=== PATIENT | female | born 1960 | race Caucasian/White ===

== ENCOUNTER 2016-12-01 09:30 | Inpatient (IN) | payer OTHER ==
[~2016-12-01] VITALS: Ht 152.4 cm; Wt 41.4 kg
[2016-12-01 12:10] LABS: BASOPHIL % 0.3 % (0-2); PLATELET COUNT 351 x10^3mcL (130-400)
[2016-12-01 12:15] LABS: microscopic required? NO
[2016-12-01 12:31] LABS: urine erythrocyte NEGATIVE (NEGATIVE)
[2016-12-01 12:38] LABS: RED CELL DISTRIBUTION WIDTH 15.8 % (11.5-14.5)
[2016-12-01 13:04] LABS: CARBON DIOXIDE 28.3 mmol/L (21-32); POTASSIUM SERUM 3.9 mmol/L (3.5-5.1)
[2016-12-01 13:05] LABS: CALCIUM 8.8 mg/dL (8.5-10.1); CREATININE SERUM 1.1 mg/dL (0.6-1.0)
[2016-12-01] MEDS ORDERED: DEPAKOTE500 MG PO (13:09)
[2016-12-01 13:10] LABS: TOTAL PROTEIN, SERUM 6.9 g/dL (6.4-8.2)
[2016-12-01] MEDS ORDERED: TRAZODONE100 MG PO (13:10)
[2016-12-01 13:11] LABS: ALBUMIN 2.7 g/dL (3.4-5.0); BILIRUBIN TOTAL 0.24 mg/dL (0.20-1.00); MAGNESIUM 2.5 mg/dL (1.8-2.4)
[2016-12-01 14:46] LABS: PHOSPHOROUS 4.5 mg/dL (2.5-4.9)
[2016-12-01 14:48] LABS: T3 TOTAL 1.37 ng/mL
[2016-12-01 14:51] VITALS: BP 105/71
[2016-12-01 14:52] LABS: CHOLESTEROL/HDL RATIO 2.3
[2016-12-01 15:00] LABS: FREE T4 1.12 ng/dL (0.76-1.46); FREE THYROXINE INDEX 2.5 ug/dL (1.4-4.5); T4(THYROXINE) 7.5 ug/dL (4.7-13.3)
[2016-12-01] MEDS ORDERED: PHARMASSURE FO0.4 MG PO (15:26)
[2016-12-01] MEDS ORDERED: FERROUS SULFAT325 M2 PO (15:26)
[2016-12-01 16:52] VITALS: BP 97/54
[2016-12-01 18:45] LABS: AMPHETAMINE QUAL UR NONE DETECTED (NEG <=1000)
[2016-12-01 21:35] VITALS: BP 94/57
[2016-12-02 05:54] LABS: BASOPHIL % 0.5 % (0-2); PLATELET COUNT 373 x10^3mcL (130-400)
[2016-12-02 05:55] VITALS: BP 94/53
[2016-12-02 06:25] LABS: CARBON DIOXIDE 27.2 mmol/L (21-32); CREATININE SERUM 1.1 mg/dL (0.6-1.0); POTASSIUM SERUM 4.4 mmol/L (3.5-5.1)
[2016-12-02 06:43] LABS: RED CELL DISTRIBUTION WIDTH 15.5 % (11.5-14.5)
[2016-12-02 09:34] VITALS: BP 90/52
[2016-12-02 14:56] LABS: TOTAL IRON BINDING CAPACITY 248 ug/dL (250-450)
[2016-12-02 14:57] LABS: IRON 16 ug/dL (50-170)
[2016-12-02 15:50] LABS: RED BLOOD CELLS 3.75 M/mm3 (4.10-5.10)
[2016-12-02 17:24] VITALS: BP 83/47
[2016-12-02 17:49] VITALS: BP 84/53
[2016-12-02 20:30] VITALS: BP 91/52
[2016-12-02 23:42] VITALS: BP 91/52
[2016-12-03 05:47] VITALS: BP 90/56
[2016-12-03 07:15] LABS: BASOPHIL % 0.5 % (0-2); PLATELET COUNT 306 x10^3mcL (130-400)
[2016-12-03 07:17] LABS: RED CELL DISTRIBUTION WIDTH 15.8 % (11.5-14.5)
[2016-12-03 07:43] LABS: CARBON DIOXIDE 22.9 mmol/L (21-32); CHLORIDE SERUM 107 mmol/L (98-107); CREATININE SERUM 0.9 mg/dL (0.6-1.0); GFR1 > 60 mL/min; POTASSIUM SERUM 3.8 mmol/L (3.5-5.1); SODIUM SERUM 139 mmol/L (136-145)
[2016-12-03 07:49] LABS: GLUCOSE SERUM 50 mg/dL (74-106)
[2016-12-03 08:22] VITALS: BP 104/54
[2016-12-03 11:53] VITALS: Ht 152.4 cm; Wt 41.4 kg
[2016-12-03 13:16] VITALS: BP 102/67
[2016-12-03 17:50] VITALS: BP 107/65
[2016-12-03 20:31] VITALS: BP 103/61
[2016-12-04 06:51] LABS: CHLORIDE SERUM 109 mmol/L (98-107); CREATININE SERUM 0.8 mg/dL (0.6-1.0); GFR1 > 60 mL/min; GLUCOSE SERUM 82 mg/dL (74-106); POTASSIUM SERUM 3.4 mmol/L (3.5-5.1); SODIUM SERUM 140 mmol/L (136-145)
[2016-12-04 07:12] LABS: BASOPHIL % 0.8 % (0-2); PLATELET COUNT 293 x10^3mcL (130-400)
[2016-12-04 07:14] LABS: RED CELL DISTRIBUTION WIDTH 15.6 % (11.5-14.5)
[2016-12-04 07:30] VITALS: BP 94/63
[2016-12-04 09:18] VITALS: BP 95/57
[2016-12-04] MEDS ORDERED: FER300 PO (10:10)
[2016-12-04] MEDS ORDERED: VITC PO (10:11)
[2016-12-04] MEDS ORDERED: ECO81 PO (10:11)
[2016-12-04] MEDS ORDERED: DEPAKOTE500 MG PO (10:14)
[2016-12-04] MEDS ORDERED: PRA20 PO (10:16)
[2016-12-04 11:32] VITALS: BP 100/67
== END 2016-12-04 12:20 | disposition home or self-care (01) | DRG 247 ==
LOC: ED 09:30 → DU 13:10 → MU 12-03 18:37
PROVIDERS: Emergency Medicine; Family Medicine; ADMIT Family Medicine
DX: K56.7 Ileus, unspecified (principal); N17.0 Acute kidney failure with tubular necrosis; E43 Unspecified severe protein-calorie malnutrition; I73.9 Peripheral vascular disease, unspecified; G47.00 Insomnia, unspecified; G40.909 Epilepsy, unspecified, not intractable, without status epilepticus; D64.9 Anemia, unspecified; F31.9 Bipolar disorder, unspecified; F17.210 Nicotine dependence, cigarettes, uncomplicated; I25.2 Old myocardial infarction; Z68.1 Body mass index [BMI] 19.9 or less, adult; Z86.74 Personal history of sudden cardiac arrest; Z98.0 Intestinal bypass and anastomosis status; Z90.710 Acquired absence of both cervix and uterus
CPT/HCPCS: 80307; 83880; 84439; J1885; J2270; J2405; J3490; J7030; J7040; Q0092

== ENCOUNTER 2017-04-28 16:32 | Emergency (ER) | payer MEDICAID ==
[~2017-04-28 16:32] MED LIST: DEPAKOTE500 MG PO; ECO81 PO; FER300 PO; FERROUS SULFAT325 M2 PO; PHARMASSURE FO0.4 MG PO; PRA20 PO; TRAZODONE100 MG PO; VITC PO
[2017-04-28 18:44] VITALS: BP 143/86
== END 2017-04-28 18:44 | disposition home or self-care (01) ==
LOC: ED 16:32
DX: S70.12XA Contusion of left thigh, initial encounter (principal); F17.210 Nicotine dependence, cigarettes, uncomplicated; Z88.8 Allergy status to other drugs, medicaments and biological substances; Z99.2 Dependence on renal dialysis; W18.30XA Fall on same level, unspecified, initial encounter; Y93.89 Activity, other specified; Y99.8 Other external cause status; Y92.89 Other specified places as the place of occurrence of the external cause
CPT/HCPCS: Q0092

== ENCOUNTER 2017-07-31 13:20 | Emergency (ER) | payer MEDICAID ==
[~2017-07-31] VITALS: Ht 152.4 cm; Wt 49.4 kg
[2017-07-31 14:01] VITALS: Ht 152.4 cm; Wt 49.4 kg
[2017-07-31 17:19] VITALS: BP 136/70
== END 2017-07-31 17:19 | disposition home or self-care (01) ==
LOC: ED 13:20
DX: J06.9 Acute upper respiratory infection, unspecified (principal); I25.2 Old myocardial infarction; Z88.8 Allergy status to other drugs, medicaments and biological substances
CPT/HCPCS: J1200; J2765; Q0092

== ENCOUNTER 2018-02-16 16:16 | Emergency (ER) | payer MEDICAID ==
[~2018-02-16] VITALS: Ht 154.9 cm; Wt 68.0 kg
[2018-02-16 16:29] VITALS: Ht 154.9 cm; Wt 68.0 kg
[2018-02-16 21:07] VITALS: BP 130/48
== END 2018-02-16 21:07 | disposition home or self-care (01) ==
LOC: ED 16:16
DX: G43.909 Migraine, unspecified, not intractable, without status migrainosus (principal); Z86.69 Personal history of other diseases of the nervous system and sense organs; Z88.8 Allergy status to other drugs, medicaments and biological substances
CPT/HCPCS: J3010; Q0162